=== PATIENT | male | born 1960 | race African-American/Black ===

== ENCOUNTER 2025-08-27 22:53 | Emergency (ER) | payer MEDICARE, OTHER ==
[~2025-08-27] VITALS: Ht 188 cm; Wt 96.6 kg
[2025-08-27] MEDS: ONDANSETRON HCL/PF 4 MG/2 ML VIAL IVP ONE
[2025-08-27] MEDS: IV NS 0.9% 1,000 ML BAG IV ONE
[2025-08-28] MEDS ORDERED: ONDANSETRON HCL/PF 4 MG/2 ML VIAL ONE (00:15)
[2025-08-28] MEDS ORDERED: KETOROLAC TROMETHAMINE INJ 30 MG/ML VIAL ONE (00:16)
[2025-08-28] MEDS ORDERED: MORPHINE SULFATE INJ 4 MG/ML DISP.SYRIN ONE (00:16)
[2025-08-28] MEDS ORDERED: CT SWABBABLE VALVE TRANS SET 1 EA INFUS.SET MC ONE (00:22)
[2025-08-28] MEDS ORDERED: IOHEXOL-300 100 ML VIAL IV ONE (00:22)
[2025-08-28] MEDS ORDERED: IV NS 0.9% 250 ML IV ONE (00:22)
[2025-08-28] MEDS: MORPHINE SULFATE INJ 2 MG/ML DISP.SYRIN IV ONE (00:28)
[2025-08-28] MEDS: KETOROLAC TROMETHAMINE 15 MG/ML VIAL IV ONE (00:28)
[2025-08-28 00:30] LABS: PLATELET COUNT (AUTO) 217 K/uL (150-450); RED BLOOD CELL COUNT(AUTO) 5.01 MIL/uL (4.5-6.0); RED CELL DISTRIBUTION WIDTH 13.3 % (11.5-15.0); WHITE BLOOD COUNT (AUTO) 10.4 K/uL (4.3-11.0)
[2025-08-28 00:38] LABS: CALCIUM, SERUM 9.2 mg/dL (8.5-10.1); CREATININE 1.3 mg/dL (0.6-1.3); SODIUM SERUM 138 mmol/L (136-145); UREA NITROGEN, BLOOD 16 mg/dL (7-18)
[2025-08-28 00:50] LABS: ASPARTATE AMINOTRANSFERASE 22 U/L (15-37); TOTAL PROTEIN, SERUM 7.7 g/dL (6.4-8.2)
[2025-08-28 00:53] LABS: LACTIC ACID 2.9 mmol/L (0.4-2.0)
[2025-08-28] MEDS ORDERED: KETO10TA2 PO (01:58)
[2025-08-28] MEDS ORDERED: TAMS-12 PO (01:58)
[2025-08-28 02:02] LABS: APPEARANCE,URINE SLIGHTLY CLOUDY (CLEAR); BLOOD, URINE 3+ Ery/uL (NEGATIVE); LEUKOCYTE ESTERASE ,URINE TRACE (NEGATIVE); NITRITE, URINE NEGATIVE (NEGATIVE); UGLUCOSE 1+ mg/dL (NEGATIVE)
[2025-08-28 02:18] LABS: ADD URINE CULTURE NO
[2025-08-28 02:19] LABS: SQUAMOUS EPITHELIAL CELL,UR None Seen /HPF (None Seen)
[2025-08-28 02:30] VITALS: BP 136/84; TEMP 98.5; O2SAT 98
== END 2025-08-28 02:30 | disposition home or self-care (01) ==
LOC: ER 22:58
DX: R10.31 Right lower quadrant pain (principal); R11.0 Nausea
CPT/HCPCS: 99285; 96374; 96361; 85025; 80048; 83605; 83690; 80076; 36415; 74177; 96375; 81001; J2405; J1885; J2270; J7050; Q9967